=== PATIENT | male | born 1965 | race Caucasian/White ===

== ENCOUNTER 2022-11-04 07:36 | Emergency (ER) | payer BC, SELFPAY ==
--- NOTE | ~2022-11-04 | CT_ITS ---
EXAMINATION: CT ANGIOGRAM CHEST, ABDOMEN AND PELVIS CLINICAL INFORMATION: Epigastric pain. Evaluate for abdominal aortic aneurysm. COMPARISON: None available. . TECHNIQUE: Noncontrast axial images obtained through the chest. Multiple axial images were obtained through the chest abdomen and pelvis following the administration of 70 mL of Omnipaque 350 intravenous contrast. Coronal and sagittal reformatted images performed at CT scanner. No 3-D imaging. This CT examination was performed using dose optimization techniques as appropriate, variously including the following: *Automated exposure control *Adjustment of mA and/or kV according to patient size (this includes techniques or standardized protocols for targeted exams where dose is matched to indication/reason for exam; i.e. extremities or head) *Use of iterative reconstruction technique DLP: 634 mGy-cm FINDINGS: VASCULAR: The thoracic aorta is normal. There is no dissection. There is no aneurysm. There is normal enhancement of the major branch vessels at the thoracic aortic arch as well as in the abdomen and pelvis. The pulmonary arteries are well opacified. No evidence of central pulmonary embolism. CT CHEST: MEDIASTINUM: No cardiomegaly. No pericardial effusion. No superior mediastinal or hilar lymphadenopathy. No mediastinal mass. Unremarkable thyroid. LUNGS: The lungs are clear. No nodule or infiltrate. Central bronchial airways are patent. PLEURA: No pleural effusion or pneumothorax. AXILLA: No significant lymphadenopathy. CT SCAN ABDOMEN PELVIS: LIVER, GALLBLADDER, AND BILIARY TREE: The liver is normal in size, shape, and attenuation. No focal hepatic lesion or intrahepatic biliary ductal dilatation is present. Multiple radiopaque gallstones with a stone at the gallbladder neck measuring up to 0.6 cm. Mild distention of the gallbladder without significant wall thickening, enhancement, or adjacent inflammatory change. Dilatation of the common bile duct measuring up to 1.8 cm with multiple distal duct stones measuring up to 0.9 cm, likely indicating distal duct obstruction. PANCREAS: Unremarkable. SPLEEN: Unremarkable. ADRENAL GLANDS: Unremarkable. KIDNEYS AND URETERS: The kidneys are normal in size, shape, and attenuation. Malrotation of the left kidney. No hydronephrosis, hydroureter, or calculi seen. Left lower pole exophytic simple cyst, not clinically significant. No dedicated followup imaging is recommended. No perinephric stranding. BLADDER: Distended and unremarkable. GASTROINTESTINAL TRACT: No small or large bowel obstruction. The bowel loops are largely nondistended. Scattered colonic diverticula without evidence of acute diverticulitis. Unremarkable appendix. PERITONEAL CAVITY: No intra-abdominal free air or free fluid. ABDOMINAL WALL: No significant hernia is appreciated. LYMPH NODES: No significant lymphadenopathy. PELVIC VISCERA: The prostate and seminal vesicles are unremarkable. OSSEOUS STRUCTURES: No acute osseous abnormality. No concerning lytic or blastic osseous lesion. Moderate bilateral hip osteoarthritis. Mild degenerative disc disease with facet arthropathy throughout the lumbar spine. CT/CT angio abdomen pelvis IMPRESSION: 1. No thoracic or abdominal aortic aneurysm or dissection. No central pulmonary embolism. 2. No pulmonary nodule, infiltrate, or pleural effusion. 3. Cholelithiasis with mild distention of the gallbladder. No significant wall thickening or adjacent inflammatory change to suggest acute cholecystitis. Dilatation of the common bile duct measuring up to 1.8 cm with multiple distal duct stones measuring up to 0.9 cm, likely indicating distal duct obstruction. 4. Diverticulosis without evidence of acute diverticulitis. No small or large bowel obstruction. Unremarkable appendix.
--- NOTE | ~2022-11-04 | US_ITS ---
EXAMINATION: US ABDOMEN LIMITED CLINICAL INFORMATION: Right upper quadrant abdominal pain. Question acute cholecystitis. COMPARISON: CT abdomen/pelvis done earlier the same day. TECHNIQUE: Real-time imaging of the right upper quadrant abdominal viscera. FINDINGS: GALLBLADDER: Mildly distended with multiple gallstones. Nonmobile stone within the gallbladder neck. Slightly echogenic bile. No significant wall thickening or pericholecystic free fluid to suggest acute cholecystitis. The gallbladder is physiologically distended without evidence of stones, sludge, polyps, wall thickening or pericholecystic fluid. COMMON BILE DUCT: Dilated measuring up to 1.3 cm in greatest dimension. The previously seen distal ductal stones are not well visualized on ultrasound. FREE FLUID: None. US/US abdomen limited IMPRESSION: 1. Mildly distended gallbladder with cholelithiasis. No significant wall thickening or pericholecystic free fluid to suggest acute cholecystitis. 2. Dilatation of the common bile duct measuring up to 1.3 cm. The previously seen distal ductal stones are not well visualized on ultrasound.
[2022-11-04 07:41] VITALS: BP 152/87; PULSE 73; RESP 17; TEMP 36.1; O2SAT 98; BMI 24.4
--- NOTE | 2022-11-04 08:05 | ECG_ITS ---
Test Reason : CHEST PAIN Blood Pressure : / mmHG Vent. Rate : 063 BPM Atrial Rate : 063 BPM P-R Int : 168 ms QRS Dur : 082 ms QT Int : 426 ms P-R-T Axes : 059 064 046 degrees QTc Int : 435 ms Normal sinus rhythm Normal ECG No previous ECGs available Referred By: Pat Post Electronically Signed By:RENA MONTENEGRO MD
--- NOTE | 2022-11-04 08:11 | ED_ITS ---
HPI - Abdominal Pain General Chief Complaint: Abdominal Pain Stated Complaint: abd pain Time Seen by Provider: 11/04/22 07:50 Source: patient and RN notes reviewed Mode of arrival: ambulatory Limitations: no limitations History of Present Illness HPI narrative: This is a 57-year-old male, with no reported past medical history, who presents to the emergency department today with complaints of epigastric pain that radiates to his back since 10:00 p.m. last night. He states that yesterday he went to a cook out and had a hamburger and then went to [place] [employer] and had ribs for dinner. He states that at 10:00PM he developed an aching, cramping like epigastric pain that radiates into his back. He states that he tried taking deonte-seltzer, pepto-bismol, and tums without any relief. He reports that he has had nausea. No vomiting or diarrhea. Denies any urinary symptoms. He has had history of heartburn in the past but states that he has never had this type of pain before and typically resolves. No hx of abdominal surgeries in the past. No shortness of breath, chest pain, or palpitations. No lower extremity swelling or pain, no cancer history, no blood clot history, no tobacco use. He is here visiting from [facility] on saturday. MD elicited complaint: abdominal pain Pertinent past history: gastritis Pain Consistency: constant Location: epigastric Severity: severe Pain scale (0-10): 9 Quality: cramping and aching Radiation: back Migration to: no migration Exacerbating factors: nothing Relieving factors: nothing Associated symptoms: denies other symptoms Related Data Previous Rx's Medication Instructions Recorded oxycodone 5 mg tablet 5 mg PO Q6H PRN pain, severe #10 11/04/22 tabs Allergies Allergy/AdvReac Type Severity Reaction Status Date / Time No Known Allergies Allergy Verified 11/04/22 07:45 Review of Systems Review of Systems Constitutional: No Weight loss, No Fever, No Chills, No Night Sweats, No Fatigue, No Malaise ENT/Mouth: No Hearing loss, No Ear Pain, No Nasal Congestion, No Sinus Pain, No Hoarseness, No sore throat, No Rhinorrhea, No Swallowing Difficulty Eyes: No Eye Pain, No Swelling, No Redness, No Foreign Body, No Discharge, No Vision Changes Cardiovascular: No Chest Pain, No SOB, No Dyspnea on Exertion, No Orthopnea, No Edema, No Palpitations Respiratory: No Cough, No Sputum, No Wheezing, No Smoke Exposure, No Dyspnea Gastrointestinal: + Nausea, No Vomiting, No Diarrhea, No Constipation, +Abd ominal pain, No Hematochezia, No Melena Genitourinary: No irregular bleeding, No Dysuria, No Urinary Frequency, No Hematuria, No Urinary Incontinence/retention, No Urgency, No Flank Pain, No Urinary Flow Changes, No Hesitancy Musculoskeletal: No joint pain, No Myalgias, No Joint Swelling Skin: No Skin Lesions, No rash Neuro: No Weakness, No Numbness, No Paresthesias, No Loss of Consciousness, No D izziness, No Headache Psych: No Anxiety/Panic, No Depression, No SI/HI/AH/VH, No Social Issues, Heme/Lymph: No Bruising, No Bleeding,No Lymphadenopathy Endocrine: No Polyuria, No Polydipsia, No Temperature Intolerance Physical Exam ED Vital Signs: Vital Signs - 24 hr 11/04/22 07:41 11/04/22 11:38 11/04/22 15:01 Temperature 97 F 98.2 F 98.2 F Pulse Rate 73 56 54 Respiratory Rate 17 14 14 Blood Pressure 152/87 H 123/68 128/67 Pulse Oximetry 98 98 98 Oxygen Delivery Method Room Air Room Air Room Air BMI result Body Mass Index 24.4 Const Other: Appears uncomfortable, sitting upright leaning forward, diaphoretic. General: cooperative and no acute distress Nutritional Appearance: average body habitus Orientation/consciousness: patient oriented x3 Limitations: no limitations [facility] Head: Yes normal to inspection, Yes normocephalic and Yes atraumatic Ears: hearing grossly normal bilaterally General nose exam: Normal external nose present Face and sinus: Yes normal facial exam Mouth: Normal oral and palatal mucosa present, oropharynx normal and moist mucous membranes Throat: Yes posterior oropharynx normal Eyes General: appearance normal, both eyes and all related structures Eyelids: Yes eyelids normal Conjunctivae: conjunctivae normal Sclerae: sclerae normal Pupils: Equal, round and reactive pupils present EOM: EOMs intact bilaterally Neck Neck: Yes normal visual inspection, Yes full ROM and Yes no lymphadenopathy Lymphatic: no lymphadenopathy noted Chest Chest palpation & inspection: normal inspection of the chest Resp Effort & Inspection: normal respiratory effort and able to speak in complete sentences Auscultation: clear to auscultation bilaterally, no crackles, no rales, no rhonchi and no wheezes Cardio Rate: regular rate Rhythm: regular rhythm Heart sounds: S1 normal heart sound present and S2 normal heart sound present GI Other: Diffusely tender throughout the entire abdomen, most tender in the epigastric region, with guarding and rebound. Inspection: Yes normal to inspection General: Yes no CVA tenderness Back/Spine/Pelvis Other: No ecchymosis or tenderness to palpation over the entire back. Back: no CVA tenderness Thoracic/Lumbar Spine: thoracic and lumbar spine normal to inspection Skin General skin exam: no rashes or lesions noted Trauma: no lacerations or abrasions Wounds: no wounds Neuro General: patient oriented x3 and moves all extremities Cranial nerves: Yes Equal, round and reactive pupils present Extrem General: Yes normal to inspection Right upper extremity: normal to inspection Left upper extremity: normal to inspection Right lower extremity: normal to inspection Left lower extremity: normal to inspection Course Reevaluation(s) Reevaluation #1: Patient still diaphoretic, in pain, morphine 4mg IV helped epigatric pain go from a 9/10 to a 5/10, but still in significant amount of pain. Pt sent to CT for imaging. Second Morphine 4 mg IV ordered. Time: 09:03 Reevaluation #2: Patient re-evaluated, resting in position in bed however appears to be more comfortable. Patient reports that his pain is improving, but still reporting a 4-5/10 epigastric pain and back pain. No leukocytosis, H and H 13.7 /37.6, platelets 140k, creatinine 1.4, BUN 22, glucose 125 calcium 7.9, total bili 0.4, liver enzymes within normal limits, normal phos, troponin 2.7, will repeat at 11:15 a.m.. Viral swabs negative. EKG normal sinus rhythm with no acute ischemic changes or ST elevation or depression. CTA chest and abdomen and pelvis returned, showing no thoracic or abdominal aortic aneurysm or dissection, no central pulmonary embolism. Cholelithiasis with mild distention of the gallbladder with no significant wall thickening or adjacent inflammatory change to suggest acute cholecystitis. Dilatation of the common bile duct measuring up to 1.8 cm with multiple distal duct stones measuring 0.9 cm, likely indicating distal duct obstruction. Will obtain ultrasound of the right upper quadrant for further evaluation. Patient remains stable at this time. Time: 10:04 Reevaluation #3: Ultrasound returns showing a mildly distended gallbladder with cholelithiasis with no significant wall thickening or pericholecystic free fluid to suggest acute cholecystitis, dilatation of the common bile duct measuring up to 1.3 cm the previously seen distal ductal stones are not well visualized on ultrasound. Spoke with patient regarding his results, he still persists to have abdominal pain radiating to his back but this has improved since receiving 8 mg of IV morphine. Discussed intractable abdominal pain with patient and had this can indicate hospital admission/surgical console. However we will order Toradol 15 mg IV and re-evaluate patient's pain. Time: 11:25 Additional Reevaluation(s): Patient feeling better after Toradol, rating his pain as a 2/10. Patient's symptoms consistent with cholelithiasis, no signs of cholecystitis on ultrasound or CT. No leukocytosis, flat troponin, UA negative. Given patient is able to tolerate p.o. and pain was controlled patient does not need hospital admission at this time. Discussed at length that patient likely needs to have cholecystectomy to resolve symptoms. Patient is currently visiting from [place] and would like to be discharged so he can coordinate further planning. Given dietary modifications for prevention. Patient given warning signs of when to return for re-evaluation. Patient discharged home with pain medication. Vital signs stable, patient is stable for discharge. Medical Decision Making Medical Decision Making [facility] Narrative: 57 y/o M, with no significant past medical history, who presents to the emergency department with complaints of epigastric pain since 10:00PM last night. On examination, patient is mildly hypertensive at 152/87, all other vital signs within normal limits. Patient appears very uncomfortable secondary to pain, pale and is diaphoretic. Patient reports no palpitations, chest pain or shortness of breath, but due to level of discomfort, concern for AAA. CT angio to r/o AAA obtained. Patient medicated with morphine and zofran in the interim. Labs, EKG, cardiac labs ordered. Differential Diagnosis Differential Diagnoses: The differential diagnosis associated with the presentation includes AAA, cholescystitis, choleliathiasis, ACS, pancreatitis, SBO , gastritis Admission/Observation Consideration of admission/observation: Escalation of care including admission/observation considered Lab Data [facility] Lab Attestation statement: I reviewed the patient's lab results. 11/04/22 08:13 11/04/22 08:13 Labs: Lab Results 11/04/22 11/04/22 11/04/22 Range/Units 08:13 08:13 08:49 WBC 11.3 H 10.0 (4.8-10.8) X10*3/uL RBC 4.54 L 4.16 L (4.60-5.80) X10*6/uL Hgb 14.8 13.7 L (14.0-18.0) g/dl Hct 40.7 L 37.6 L (42.0-52.0) % MCV 89.6 90.4 (80.0-98.0) fL MCH 32.6 32.9 (27.0-33.0) pg MCHC 36.4 H 36.4 H (31.0-36.0) g/dl RDW 14.0 14.0 (11.0-16.0) % Plt Count 160 140 L (160-400) X10*3/uL MPV 10.5 10.5 (9.4-12.4) fL Immature Gran % (Auto) 0.5 H 0.8 H (0.0-0.4) % Neut % (Auto) 85.9 H 85.7 H (45-73) % Lymph % (Auto) 9.8 L 9.7 L (20-40) % [place] % (Auto) 3.5 3.5 (2-11) % Eos % (Auto) 0.2 0.1 (0-4) % Baso % (Auto) 0.1 0.2 (0-2) % Lymph # (Auto) 1.1 L 1.0 L (1.2-4.9) X10*3/uL [place] # (Auto) 0.4 0.4 (0.1-1.2) X10*3/uL Eos # (Auto) 0.0 0.0 (0.0-0.4) X10*3/uL Baso # (Auto) 0.0 0.0 (0.0-0.2) X10*3/uL Abs Immat Gran (auto) 0.06 H 0.08 H (0.00-0.03) X10*3/uL Absolute Neuts (auto) 9.7 H 8.5 H (2.0-8.3) x10*3/uL Absolute Nucleated RBC 0.000 0.000 (0.0-0.012) X10*3/uL Nucleated RBC % (auto) 0.0 0.0 (0.0-0.2) /100WBC Sodium 138 (135-145) mmol/L Potassium 4.1 (3.3-5.1) mmol/L Chloride 108 (96-108) mmol/L Carbon Dioxide 22 (22-29) mmol/L Anion Gap 12 (12-20) BUN 23 H (9-16) mg/dL Creatinine 1.47 H (0.5-1.4) mg/dL Estim Creat Clear Calc 61.1 Estimated GFR 49 Random Glucose 134 H (60-115) mg/dL Calcium 8.3 L (8.4-10.2) mg/dL Magnesium (1.6-2.6) mg/dL Total Bilirubin 1.4 H (0.0-1.0) mg/dL Direct Bilirubin (0.0-0.5) mg/dL AST 30 (5-37) U/L ALT 29 (0-40) U/L Alkaline Phosphatase 107 (39-117) U/L Troponin I High Sens (<3.5-35.0) ng/L Total Protein 6.2 L (6.5-8.0) g/dL Albumin 3.6 (3.5-5.0) g/dL Lipase 21 (8-78) U/L Urine Color Urine Appearance Urine pH (5.0-9.0) Ur Specific [place] (1.005-1.025) Urine Protein (Neg-Trace) mg/dL Urine Glucose (UA) (Negative) mg/dL Urine Ketones (Negative) mg/dL Urine Blood (Negative) Urine Nitrite (Negative) Ur Leukocyte Esterase (Negative) Influenza Type A (PCR) (Negative) Influenza Type B (PCR) (Negative) RSV RNA Qual (PCR) (Negative) SARS-CoV-2 RNA (RT-PCR) (Negative) 11/04/22 11/04/22 11/04/22 Range/Units 08:49 08:49 08:49 WBC (4.8-10.8) X10*3/uL RBC (4.60-5.80) X10*6/uL Hgb (14.0-18.0) g/dl Hct (42.0-52.0) % MCV (80.0-98.0) fL MCH (27.0-33.0) pg MCHC (31.0-36.0) g/dl RDW (11.0-16.0) % Plt Count (160-400) X10*3/uL MPV (9.4-12.4) fL Immature Gran % (Auto) (0.0-0.4) % Neut % (Auto) (45-73) % Lymph % (Auto) (20-40) % [place] % (Auto) (2-11) % Eos % (Auto) (0-4) % Baso % (Auto) (0-2) % Lymph # (Auto) (1.2-4.9) X10*3/uL [place] # (Auto) (0.1-1.2) X10*3/uL Eos # (Auto) (0.0-0.4) X10*3/uL Baso # (Auto) (0.0-0.2) X10*3/uL Abs Immat Gran (auto) (0.00-0.03) X10*3/uL Absolute Neuts (auto) (2.0-8.3) x10*3/uL Absolute Nucleated RBC (0.0-0.012) X10*3/uL Nucleated RBC % (auto) (0.0-0.2) /100WBC Sodium 139 (135-145) mmol/L Potassium 4.2 (3.3-5.1) mmol/L Chloride 109 H (96-108) mmol/L Carbon Dioxide 23 (22-29) mmol/L Anion Gap 11 L (12-20) BUN 22 H (9-16) mg/dL Creatinine 1.40 (0.5-1.4) mg/dL Estim Creat Clear Calc 64.2 Estimated GFR 52 Random Glucose 125 H (60-115) mg/dL Calcium 7.9 L (8.4-10.2) mg/dL Magnesium 2.0 (1.6-2.6) mg/dL Total Bilirubin 1.4 H (0.0-1.0) mg/dL Direct Bilirubin 0.4 (0.0-0.5) mg/dL AST 24 (5-37) U/L ALT 25 (0-40) U/L Alkaline Phosphatase 99 (39-117) U/L Troponin I High Sens < 2.7 (<3.5-35.0) ng/L Total Protein 5.8 L (6.5-8.0) g/dL Albumin 3.3 L (3.5-5.0) g/dL Lipase 23 (8-78) U/L Urine Color Urine Appearance Urine pH (5.0-9.0) Ur Specific [place] (1.005-1.025) Urine Protein (Neg-Trace) mg/dL Urine Glucose (UA) (Negative) mg/dL Urine Ketones (Negative) mg/dL Urine Blood (Negative) Urine Nitrite (Negative) Ur Leukocyte Esterase (Negative) Influenza Type A (PCR) NEGATIVE (Negative) Influenza Type B (PCR) NEGATIVE (Negative) RSV RNA Qual (PCR) NEGATIVE (Negative) SARS-CoV-2 RNA (RT-PCR) NEGATIVE (Negative) 11/04/22 11/04/22 Range/Units 11:42 11:42 WBC (4.8-10.8) X10*3/uL RBC (4.60-5.80) X10*6/uL Hgb (14.0-18.0) g/dl Hct (42.0-52.0) % MCV (80.0-98.0) fL MCH (27.0-33.0) pg MCHC (31.0-36.0) g/dl RDW (11.0-16.0) % Plt Count (160-400) X10*3/uL MPV (9.4-12.4) fL Immature Gran % (Auto) (0.0-0.4) % Neut % (Auto) (45-73) % Lymph % (Auto) (20-40) % [place] % (Auto) (2-11) % Eos % (Auto) (0-4) % Baso % (Auto) (0-2) % Lymph # (Auto) (1.2-4.9) X10*3/uL [place] # (Auto) (0.1-1.2) X10*3/uL Eos # (Auto) (0.0-0.4) X10*3/uL Baso # (Auto) (0.0-0.2) X10*3/uL Abs Immat Gran (auto) (0.00-0.03) X10*3/uL Absolute Neuts (auto) (2.0-8.3) x10*3/uL Absolute Nucleated RBC (0.0-0.012) X10*3/uL Nucleated RBC % (auto) (0.0-0.2) /100WBC Sodium (135-145) mmol/L Potassium (3.3-5.1) mmol/L Chloride (96-108) mmol/L Carbon Dioxide (22-29) mmol/L Anion Gap (12-20) BUN (9-16) mg/dL Creatinine (0.5-1.4) mg/dL Estim Creat Clear Calc Estimated GFR Random Glucose (60-115) mg/dL Calcium (8.4-10.2) mg/dL Magnesium (1.6-2.6) mg/dL Total Bilirubin (0.0-1.0) mg/dL Direct Bilirubin (0.0-0.5) mg/dL AST (5-37) U/L ALT (0-40) U/L Alkaline Phosphatase (39-117) U/L Troponin I High Sens < 2.7 (<3.5-35.0) ng/L Total Protein (6.5-8.0) g/dL Albumin (3.5-5.0) g/dL Lipase (8-78) U/L Urine Color Yellow Urine Appearance Clear Urine pH 7.0 (5.0-9.0) Ur Specific [place] 1.020 (1.005-1.025) Urine Protein Negative (Neg-Trace) mg/dL Urine Glucose (UA) Negative (Negative) mg/dL Urine Ketones Negative (Negative) mg/dL Urine Blood Negative (Negative) Urine Nitrite Negative (Negative) Ur Leukocyte Esterase Negative (Negative) Influenza Type A (PCR) (Negative) Influenza Type B (PCR) (Negative) RSV RNA Qual (PCR) (Negative) SARS-CoV-2 RNA (RT-PCR) (Negative) Independent Interpretation I performed an independent interpretation of an: EKG Interpretation: EKG normal sinus rhythm with a ventricular rate of 63ms, WI interval 168ms, QTC 435. no acute ischemic changes. no ST elevation or depression. Radiology Impression Discussion of test interpretation with radiology: I have reviewed the radiologist's reading. Radiologist Impression: EXAMINATION: CT ANGIOGRAM CHEST, ABDOMEN AND PELVIS CLINICAL INFORMATION: Epigastric pain. Evaluate for abdominal aortic aneurysm. COMPARISON: None available. .? TECHNIQUE: Noncontrast axial images obtained through the chest. Multiple axial images were obtained through the chest abdomen and pelvis following the administration of 70 mL of Omnipaque 350 intravenous contrast. Coronal and sagittal reformatted images performed at CT scanner. No 3-D imaging. This CT examination was performed using dose optimization techniques as appropriate, variously including the following: *Automated exposure control *Adjustment of mA and/or kV according to patient size (this includes techniques or standardized protocols for targeted exams where dose is matched to indication/reason for exam; i.e. extremities or head) *Use of iterative reconstruction technique DLP: 634 mGy-cm FINDINGS: VASCULAR: The thoracic aorta is normal. There is no dissection. There is no aneurysm. There is normal enhancement of the major branch vessels at the thoracic aortic arch as well as in the abdomen and pelvis. The pulmonary arteries are well opacified. No evidence of central pulmonary embolism. CT CHEST: MEDIASTINUM: No cardiomegaly. No pericardial effusion. No superior mediastinal or hilar lymphadenopathy. No mediastinal mass. Unremarkable thyroid.? LUNGS: The lungs are clear. No nodule or infiltrate. Central bronchial airways are patent. PLEURA: No pleural effusion or pneumothorax. AXILLA: No significant lymphadenopathy. CT SCAN ABDOMEN PELVIS: LIVER, GALLBLADDER, AND BILIARY TREE: The liver is normal in size, shape, and attenuation. No focal hepatic lesion or intrahepatic biliary ductal dilatation is present. Multiple radiopaque gallstones with a stone at the gallbladder neck measuring up to 0.6 cm. Mild distention of the gallbladder without significant wall thickening, enhancement, or adjacent inflammatory change. Dilatation of the common bile duct measuring up to 1.8 cm with multiple distal duct stones measuring up to 0.9 cm, likely indicating distal duct obstruction. PANCREAS: Unremarkable.? SPLEEN: Unremarkable.? ADRENAL GLANDS: Unremarkable.? KIDNEYS AND URETERS: The kidneys are normal in size, shape, and attenuation. Malrotation of the left kidney. No hydronephrosis, hydroureter, or calculi seen. Left lower pole exophytic simple cyst, not clinically significant. No dedicated followup imaging is recommended. No perinephric stranding. ? BLADDER: Distended and unremarkable.? GASTROINTESTINAL TRACT: No small or large bowel obstruction. The bowel loops are largely nondistended. Scattered colonic diverticula without evidence of acute diverticulitis. Unremarkable appendix. PERITONEAL CAVITY: No intra-abdominal free air or free fluid.? ABDOMINAL WALL: No significant hernia is appreciated.? LYMPH NODES: No significant lymphadenopathy. PELVIC VISCERA: The prostate and seminal vesicles are unremarkable. OSSEOUS STRUCTURES: No acute osseous abnormality. No concerning lytic or blastic osseous lesion. Moderate bilateral hip osteoarthritis. Mild degenerative disc disease with facet arthropathy throughout the lumbar spine.? CT/CT angio abdomen pelvis IMPRESSION: 1. No thoracic or abdominal aortic aneurysm or dissection. No central pulmonary embolism. ? 2. No pulmonary nodule, infiltrate, or pleural effusion. ? 3. Cholelithiasis with mild distention of the gallbladder. No significant wall thickening or adjacent inflammatory change to suggest acute cholecystitis. Dilatation of the common bile duct measuring up to 1.8 cm with multiple distal duct stones measuring up to 0.9 cm, likely indicating distal duct obstruction. ? 4. Diverticulosis without evidence of acute diverticulitis. No small or large bowel obstruction. Unremarkable appendix. Dictated By: Mitesh Enriquez MD EXAMINATION: US ABDOMEN LIMITED CLINICAL INFORMATION: Right upper quadrant abdominal pain. Question acute cholecystitis. COMPARISON: CT abdomen/pelvis done earlier the same day. TECHNIQUE: Real-time imaging of the right upper quadrant abdominal viscera. FINDINGS: GALLBLADDER: Mildly distended with multiple gallstones. Nonmobile stone within the gallbladder neck. Slightly echogenic bile. No significant wall thickening or pericholecystic free fluid to suggest acute cholecystitis. The gallbladder is physiologically distended without evidence of stones, sludge, polyps, wall thickening or pericholecystic fluid. COMMON BILE DUCT: Dilated measuring up to 1.3 cm in greatest dimension. The previously seen distal ductal stones are not well visualized on ultrasound. FREE FLUID: None. US/US abdomen limited IMPRESSION: 1. Mildly distended gallbladder with cholelithiasis. No significant wall thickening or pericholecystic free fluid to suggest acute cholecystitis. ? 2. Dilatation of the common bile duct measuring up to 1.3 cm. The previously seen distal ductal stones are not well visualized on ultrasound. Dictated By: Mitesh Enriquez MD Prescription Management I considered prescription management with: Pain Medication Medications Administered Discontinued Medications Generic Name Dose Route Start Last Admin Trade Name Charlie PRN Reason Stop Dose Admin Sodium Chloride 1,000 mls @ 999 mls/hr 11/04/22 08:04 11/04/22 09:30 Ns IVCONT 11/04/22 09:04 Infused .Q1H1M ONE Infusion Iohexol 100 ml 11/04/22 09:15 11/04/22 09:15 Iohexol 350 Mg/Ml 100 Ml Infus..Btl IV 11/04/22 09:16 70 ml ONCE ONE Administration Ketorolac Tromethamine 15 mg 11/04/22 11:37 11/04/22 11:53 Ketorolac Tromethamine 15 Mg/Ml Vial IVPUSH 11/04/22 11:38 15 mg ONCE ONE Administration Morphine Sulfate 4 mg 11/04/22 08:08 11/04/22 08:17 Morphine Sulfate 4 Mg/Ml Cartridge IVPUSH 11/04/22 08:09 4 mg ONCE ONE Administration Protocol Morphine Sulfate 4 mg 11/04/22 09:03 11/04/22 09:36 Morphine Sulfate 4 Mg/Ml Cartridge IVPUSH 11/04/22 09:04 4 mg ONCE ONE Administration Protocol Ondansetron HCl 4 mg 11/04/22 08:03 11/04/22 08:17 Ondansetron Hcl 4 Mg/2 Ml Vial IVPUSH 11/04/22 08:04 4 mg ONCE ONE Administration Critical Care Time Critical Care Time Critical Care Time: Yes Total Critical Care Time: 30 Attestation: I performed 30 minutes of critical care reviewing patient's medical workup today as well as controlling pain. Discharge Plan Discharge Clinical Impression: Cholelithiasis, Abdominal pain Patient Disposition: Home, Self-Care Instructions: Gallstones (ED), Abdominal Pain (ED) Additional Instructions: You need to eat a extremely low fat diet until you follow up with a general surgeon to avoid this from happening again. Avoid red meat, dairy, cheese. Rice, bread, vegetables, fruits are typically well tolerated and low fat options. See attached information for further guidance. I gave you a stronger pain medication today, please take this only as needed for severe pain. Do not drink alcohol or drive while taking this medication. Please call your primary care physician regarding this visit, you likely need to have your gallbladder removed. Please return should you develop severe abdominal pain, fevers, chills, nausea, vomiting unable to tolerate p.o. please return for re-evaluation Prescriptions: New oxycodone 5 mg tablet 5 mg PO Q6H PRN (Reason: pain, severe) Qty: 10 0RF Rx Instructions: Partial Fill upon patient request. Interventions: ED Discharge Assessment Last Done: 11/04/22 14:57 Discharge Date/Time: 11/04/22 15:02
[2022-11-04 08:17] LABS: MANUAL DIFF FLAG NO
[2022-11-04] MEDS: Morphine Sulfate 4 MG/ML CARTRIDGE IVPUSH ×2 (08:17→09:36)
[2022-11-04] MEDS: ondansetron HCL 4 MG/2 ML VIAL IVPUSH (08:17)
[2022-11-04] MEDS: 0.9 % Sodium Chloride 1,000 ML 999 ML IVCONT (08:18)
[2022-11-04 08:20] LABS: Basophils Percent Auto 0.1 % (0-2); Eosinophils Percent Auto 0.2 % (0-4); Hematocrit 40.7 % (42.0-52.0); Hemoglobin 14.8 g/dl (14.0-18.0); Imm Gran Abs Auto 0.06 X10*3/uL (0.00-0.03); Imm Gran Pct Auto 0.5 % (0.0-0.4); Lymphocytes Absolute Auto 1.1 X10*3/uL (1.2-4.9); Lymphocytes Percent Auto 9.8 % (20-40); Mean Corpuscular HGB Conc 36.4 g/dl (31.0-36.0); Mean Corpuscular Hemoglobin 32.6 pg (27.0-33.0); Mean Corpuscular Volume 89.6 fL (80.0-98.0); Mean Platelet Volume 10.5 fL (9.4-12.4); Monocytes Absolute Auto 0.4 X10*3/uL (0.1-1.2); Monocytes Percent Auto 3.5 % (2-11); Neutrophils Absolute Auto 9.7 x10*3/uL (2.0-8.3); Neutrophils Percent Auto 85.9 % (45-73); Platelet Count 160 X10*3/uL (160-400); Red Blood Count 4.54 X10*6/uL (4.60-5.80); White Blood Count 11.3 X10*3/uL (4.8-10.8)
[2022-11-04 08:41] LABS: Alanine Aminotransferase 29 U/L (0-40); Albumin Level 3.6 g/dL (3.5-5.0); Alkaline Phosphatase 107 U/L (39-117); Anion Gap 12 (12-20); Aspartate Amino Transferase 30 U/L (5-37); Bilirubin Total 1.4 mg/dL (0.0-1.0); Blood Urea Nitrogen 23 mg/dL (9-16); Calcium 8.3 mg/dL (8.4-10.2); Carbon Dioxide 22 mmol/L (22-29); Chloride 108 mmol/L (96-108); Creatinine Clr Calc Pharmacy 61.1; Estimated Glomerular Filt Rate 49; Glucose Random 134 mg/dL (60-115); Lipase 21 U/L (8-78); Potassium 4.1 mmol/L (3.3-5.1); Sodium 138 mmol/L (135-145); Total Protein 6.2 g/dL (6.5-8.0)
[2022-11-04 08:55] LABS: MANUAL DIFF FLAG NO
[2022-11-04 09:02] LABS: Basophils Percent Auto 0.2 % (0-2); Eosinophils Percent Auto 0.1 % (0-4); Hematocrit 37.6 % (42.0-52.0); Hemoglobin 13.7 g/dl (14.0-18.0); Imm Gran Abs Auto 0.08 X10*3/uL (0.00-0.03); Imm Gran Pct Auto 0.8 % (0.0-0.4); Lymphocytes Percent Auto 9.7 % (20-40); Mean Corpuscular HGB Conc 36.4 g/dl (31.0-36.0); Mean Corpuscular Hemoglobin 32.9 pg (27.0-33.0); Mean Corpuscular Volume 90.4 fL (80.0-98.0); Mean Platelet Volume 10.5 fL (9.4-12.4); Monocytes Absolute Auto 0.4 X10*3/uL (0.1-1.2); Monocytes Percent Auto 3.5 % (2-11); Neutrophils Absolute Auto 8.5 x10*3/uL (2.0-8.3); Neutrophils Percent Auto 85.7 % (45-73); Platelet Count 140 X10*3/uL (160-400); Red Blood Count 4.16 X10*6/uL (4.60-5.80)
[2022-11-04] MEDS: iohexoL 350 MG/ML 100 ML INFUS..BTL IV (09:15)
[2022-11-04 09:16] LABS: Alanine Aminotransferase 25 U/L (0-40); Albumin Level 3.3 g/dL (3.5-5.0); Alkaline Phosphatase 99 U/L (39-117); Anion Gap 11 (12-20); Aspartate Amino Transferase 24 U/L (5-37); Bilirubin Direct 0.4 mg/dL (0.0-0.5); Bilirubin Total 1.4 mg/dL (0.0-1.0); Blood Urea Nitrogen 22 mg/dL (9-16); Calcium 7.9 mg/dL (8.4-10.2); Carbon Dioxide 23 mmol/L (22-29); Chloride 109 mmol/L (96-108); Creatinine Clr Calc Pharmacy 64.2; Estimated Glomerular Filt Rate 52; Glucose Random 125 mg/dL (60-115); Lipase 23 U/L (8-78); Potassium 4.2 mmol/L (3.3-5.1); Sodium 139 mmol/L (135-145); Total Protein 5.8 g/dL (6.5-8.0)
[2022-11-04 09:24] LABS: Troponin-I High Sensitivity < 2.7 ng/L (<3.5-35.0)
[2022-11-04 09:32] LABS: Influenza A PCR NEGATIVE (Negative); Influenza B PCR NEGATIVE (Negative); Resp Syncy Virus RNA Qual PCR NEGATIVE (Negative); SARS COV2 PCR INHOUSE NEGATIVE (Negative)
[2022-11-04 11:38] VITALS: BP 123/68; PULSE 56; RESP 14; TEMP 36.8; O2SAT 98
[2022-11-04 11:49] LABS: Appearance Urine Clear; Color Urine Yellow; Glucose Urine UA Negative (Negative); Leukocyte Esterase Urine Negative (Negative); Nitrite Urine Negative (Negative); Urine Blood Negative (Negative); Urine Ketones Negative (Negative); Urine Protein Negative (Neg-Trace)
[2022-11-04] MEDS: Ketorolac Tromethamine 15 MG/ML VIAL IVPUSH (11:53)
[2022-11-04 12:07] LABS: Troponin-I High Sensitivity < 2.7 ng/L (<3.5-35.0)
[2022-11-04 15:01] VITALS: BP 128/67; PULSE 54; RESP 14; TEMP 36.8; O2SAT 98
== END 2022-11-04 15:02 | disposition home or self-care (01) ==
PROVIDERS: Physician Assistant Medical; Emergency Provider Emergency Medicine
DX: K80.20 Calculus of gallbladder without cholecystitis without obstruction (principal); R10.13 Epigastric pain; R07.89 Other chest pain; R10.11 Right upper quadrant pain; Z20.822 Contact with and (suspected) exposure to COVID-19; Z20.828 Contact with and (suspected) exposure to other viral communicable diseases; Z79.899 Other long term (current) drug therapy
CPT/HCPCS: 0241U; 36415; 71275; 74174; 76705; 80048; 80053; 80076; 81003; 83690; 83735; 84484; 85025; 93005; 96374; 96375; 96376; 99284; J1885; J2270; J2405; Q9967